=== PATIENT | female | born 1935 ===

== ENCOUNTER 2017-04-17 12:33 | Emergency (ER) | payer MEDICARE, OTHER ==
[2017-04-17 12:33] VITALS: BMI 34.2
[2017-04-17 12:57] VITALS: RESP 18; TEMP 97.5
[2017-04-17] MEDS ORDERED: Morphine 4 MG/ML VIAL ONE (14:23)
--- NOTE | 2017-04-17 16:05 | RAD ---
PROCEDURE: CHEST RADIOGRAPH, 1 VIEW HISTORY: s/p fall COMPARISON: None available. FINDINGS: LUNGS: The lungs are clear. PLEURA: No pneumothorax or pleural fluid seen. CARDIOVASCULAR: Normal. OSSEOUS STRUCTURES: There is an old fracture deformity in the right posterolateral 6th rib. VISUALIZED UPPER ABDOMEN: Normal. OTHER FINDINGS: None. IMPRESSION: No active pulmonary disease.
--- NOTE | 2017-04-17 16:56 | RAD ---
PROCEDURE: Radiographs of the Lumbar Spine. HISTORY: back pain s/p fall COMPARISON: No prior. FINDINGS: BONES: Normal alignment. No listhesis. No fracture. DISC SPACES: Unremarkable. OTHER FINDINGS: Calcified nonaneurysmal abdominal aorta. IMPRESSION: No acute findings related to/accounting for the clinical presentation. Additional benign and/or incidental findings described above. Please note: No preliminary report/ innterpretation of this examination provided by emergency department personnel.
--- NOTE | 2017-04-17 16:57 | RAD ---
PROCEDURE: Radiographs of the right humerus. HISTORY: Pain/swelling s/p fall 12 days ago COMPARISON: None. FINDINGS: BONES: Impacted and comminuted fracture proximal right humerus with avulsion of greater tuberosity. SOFT TISSUES: Soft tissue swelling at the site of the fracture identified. OTHER FINDINGS: None. IMPRESSION: Impacted, comminuted fracture the junction of an involving both right humeral neck and head.
--- NOTE | 2017-04-17 17:11 | C.PDOC ---
History Of Present Illness Pt fell 12 days ago and was evaluated [place] [facility] [place] hum[place] fracture was diagnosed and pt was placed in a sling. Pt was referred to orthopedic and given prescription for Percocet which pt did not fill. - HPI Time Seen by Provider: 04/17/17 13:31 Chief Complaint (Nursing): Trauma History Per: Patient, Family Injury Occurred (Timing): Days Ago: (12) Location Of Injury: Right: Arm Severity: Moderate Additional History Per: Prior Records Past Medical History Reviewed: Historical Data, Nursing Documentation, Vital Signs Vital Signs: Last Vital Signs Temp 97.5 F L 04/17/17 12:48 Pulse 84 04/17/17 12:48 Resp 18 04/17/17 12:48 BP 171/89 H 04/17/17 12:48 Pulse Ox 96 04/17/17 12:48 - Medical History PMH: Alzheimer's Disease, Dementia, Diabetes, HTN, Hypercholesterolemia, Osteoporosis Surgical History: Appendectomy, Cholecystectomy (4 years ago) Family History: States: Unknown Family Hx - Social History Hx Tobacco Use: No Hx Alcohol Use: No Hx Substance Use: No - Immunization History Hx Tetanus Toxoid Vaccination: No Hx Influenza Vaccination: No Hx Pneumococcal Vaccination: No Review Of Systems Except As Marked, All Systems Reviewed And Found Negative. Constitutional: Negative for: Fever Cardiovascular: Negative for: Chest Pain Respiratory: Negative for: Shortness of Breath Gastrointestinal: Negative for: Vomiting, Abdominal Pain Musculoskeletal: Positive for: Arm Pain (right), Back Pain. Negative for: Neck Pain, Leg Pain Neurological: Negative for: Weakness, Numbness, Seizures Physical Exam - Physical Exam Appears: Non-toxic, No Acute Distress Skin: Warm, Dry Head: Atraumatic, Normacephalic Eye(s): bilateral: PERRL, EOMI Neck: Normal ROM, No Midline Cervical Tenderness, No Step Off Deformity, Supple Chest: Symmetrical, No Deformity Cardiovascular: Rhythm Regular Respiratory: Normal Breath Sounds, No Accessory Muscle Use Gastrointestinal/Abdominal: Soft, No Tenderness Back: Paraspinal Tenderness Extremity: Tenderness (right upper arm), Capillary Refill (wnl), Swelling ( right upper arm) Extremity: Right: Limited ROM To Joint (Shoulder), Bilateral: Hips Non-Tender, Pelvis-Stable Pulses: Right Radial: Normal Neurological/Psych: Oriented x3, Normal Motor, Normal Sensation ED Course And Treatment O2 Sat by Pulse Oximetry: 96 Pulse Ox Interpretation: Normal - Radiology CXR: Viewed By Me, Read By Radiologist CXR Interpretation: Yes: No Acute Disease - Other Rad LS spine x-rays X-Ray: Viewed By Me, Read By Radiologist Interpretation: IMPRESSION: No acute findings related to/accounting for the clinical presentation. Additional benign and/or incidental findings described above. Right humerous x-rays X-Ray: Viewed By Me, Read By Radiologist Interpretation: IMPRESSION: Impacted, comminuted fracture the junction of an involving both right humeral neck and head. Disposition Counseled Patient/Family Regarding: Studies Performed, Diagnosis, Need For Followup - Disposition Disposition: HOME/ ROUTINE Disposition Time: 17:15 Condition: FAIR Additional Instructions: Fill and take the prescription for Percocet. Keep your right arm in the sling provided. Follow up with the orthopedic surgeon on April 24 as already scheduled. Return to the ER if you develop weakness, numbness, worsening of symptoms or if you have any other concerns. Instructions: Arm Fracture in Adults (ED) Forms: Topmission (Urdu) Print Language: MONTSERRATIAN - Clinical Impression Clinical Impression: Fracture of neck of right humerus
[2017-04-17 17:27] VITALS: BP 181/92; PULSE 76; O2SAT 97
== END 2017-04-17 17:43 | disposition home or self-care (01) ==
LOC: C.ER 12:33
DX: S42.291G Other displaced fracture of upper end of right humerus, subsequent encounter for fracture with delayed healing (principal); W18.30XD Fall on same level, unspecified, subsequent encounter
CPT/HCPCS: 71010; 72100; 73060; 96372; 99285; J2270

== ENCOUNTER 2017-06-06 10:29 | Inpatient (IN) | payer MEDICARE, OTHER ==
[2017-06-06 10:30] VITALS: BMI 34.2
--- NOTE | 2017-06-06 12:18 | C.PDOC ---
History Of Present Illness 81 y/o female with PMHx of DM, HTN, Arthritis and Dementia presents to ED status post falling from chair yesterday and today with complaints of right leg pain and swelling. As per daughter at bedside, patient falls secondary to weakness on right leg and reports patient is unable to bend right leg secondary to pain and swelling. Daughter states patient fell x1 month ago and had right arm fracture for which she is going to physical therapy for and states she gave patient Oxycodone yesterday after falling. Patient reports hitting head on floor today when falling and denies chest pain, sob, loc, nausea, vomiting, headache or any other complaints at this time. PMD is Dr Bates - [facility] Time Seen by Provider: 06/06/17 11:10 Chief Complaint (Nursing): Trauma History Per: Patient, Family History/Exam Limitations: no limitations Onset/Duration Of Symptoms: Days Past Medical History Reviewed: Historical Data, Nursing Documentation, Vital Signs Vital Signs: Last Vital Signs Temp 97.8 F 06/06/17 17:55 Pulse 93 H 06/06/17 17:55 Resp 20 06/06/17 17:55 BP 169/91 H 06/06/17 17:55 Pulse Ox 95 06/06/17 18:55 - Medical History PMH: Alzheimer's Disease, Dementia, Diabetes, HTN, Hypercholesterolemia, Osteoporosis Surgical History: Appendectomy, Cholecystectomy (4 years ago) Family History: States: No Known Family Hx - Social History Hx Tobacco Use: No Hx Alcohol Use: No Hx Substance Use: No - Immunization History Hx Tetanus Toxoid Vaccination: No Hx Influenza Vaccination: No Hx Pneumococcal Vaccination: No Review Of Systems Constitutional: Negative for: Fever, Chills Eyes: Negative for: Vision Change Gastrointestinal: Negative for: Nausea, Vomiting Genitourinary: Negative for: Dysuria, Hematuria Musculoskeletal: Positive for: Back Pain, Leg Pain Skin: Negative for: Rash Neurological: Positive for: Weakness. Negative for: Numbness, Headache, Dizziness Physical Exam - Physical Exam Additional Physical Exam Comments: Constitutional: No acute distress. WDWN. Head: Normocephalic. Atraumatic. Eyes: PERRL. EOMI. ENT: Moist mucous membranes. Neck: Supple. Cardiovascular: Regular rate and rhythm. Chest: No tenderness. Respiratory: Clear to auscultation bilaterally. GI: Soft. Nontender. Nondistended. Back: No CVA and no mid-line tenderness. Musculoskeletal: (+)swell to right lateral malleolus and to right knee (+) Tenderness to right lateral malleolus (+)Decreased ROM of right knee Secondary to pain (Old injury to right arm from previous fall x1 month ago) +2 DP pulse bilateral Skin: No rash. Neurologic: Alert, no focal deficit. Normal Motor ED Course And Treatment - Laboratory Results Result Diagrams: 06/06/17 12:30 06/06/17 12:30 O2 Sat by Pulse Oximetry: 95 (RA) Pulse Ox Interpretation: Normal - Other Rad Right humerus X-Ray: Viewed By Me, Read By Radiologist Interpretation: PROCEDURE: Radiographs of the right humerus. HISTORY: s/p fall. COMPARISON: 04/17/2017. FINDINGS: BONES: Previously referenced comminuted fracture humeral head greater tuberosity avulsion and impaction at the head neck interface is renoted. All callus formation over the lateral comminuted fracture fragments suggested. Eight 2 to 3 mm ossification projects just superior to the lateral humeral head on the current study not appreciate on the prior study either interval change or previously obscured. ; calcific tendinopathy calcific bursitis and/or tiny ossific avulsion chip fracture fragment are all considerations. SOFT TISSUES: As above. OTHER FINDINGS: Acromioclavicular joint space narrowing -senescent changes. IMPRESSION: Humeral head-neck fracture with impaction and interval callus formation. Interval demonstration calcific tendinopathy, calcific bursitis and/or tiny ossific avulsion chip fracture fragment -humeral head bordering. Right ankle X-Ray: Viewed By Me, Read By Radiologist Interpretation: PROCEDURE: Right Ankle Radiographs. HISTORY: twisted lateral malleolus miller. COMPARISON: None. FINDINGS: BONES: Talar dome intact. Generalized osteopenia. On the frontal to slightly oblique view, cortical interruption versus severe demineralization is suggested. Cortical fracture here possible. Overlying mottled radiolucency. Consider further evaluation with CT of the right ankle/hindfoot and/or MRI. Anterior tibial plafond fracture tibial talar joint extension suggested on lateral view. Talar body neck junction appears foreshortened on lateral view additional pathology here - possible. Wedged navicular bone with mild sclerosis - possibly chronic. Inferior calcaneal spur. 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 Ankle mortise maintained. Talar dome intact on frontal view. Talar dome flattened on lateral view. SOFT TISSUES: Marked soft tissue swelling especially over lateral ankle and hindfoot. Vascular calcifications. OTHER FINDINGS: None. IMPRESSION: Anterior tibial plafond fracture with tibiotalar joint extension. Additional areas of abnormal mostly talar morphology lateral aspect, posterior head and talar body neck junction . Ox soft tissue swelling. Additional fractures are of concern. Consider CT ankle for further localization and cortical assessments - CT Scan/US Head w/o contrast Other Rad Studies (CT/US): Read By Radiologist, Radiology Report Reviewed CT/US Interpretation: PROCEDURE: CT HEAD WITHOUT CONTRAST. HISTORY: R/O Bleed. COMPARISON: Noncontrast head CT from 05/30/2016. TECHNIQUE: Axial computed tomography images were obtained through the head/brain without intravenous contrast. Radiation dose: Total exam DLP = 828.87 mGy-cm. This CT exam was performed using one or more of the following dose reduction techniques: Automated exposure control, adjustment of the mA and/or kV according to patient size, and/or use of iterative reconstruction technique. FINDINGS: HEMORRHAGE: No intracranial hemorrhage. BRAIN: There is cystic encephalomalacia in the right paramedian posterior parietal, occipital and posterior medial temporal lobes with volume loss and ex vacuo dilatation of the atrium of the right lateral ventricle. There are severe chronic microangiopathic changes. There is no mass, mass effect or abnormal extra- axial fluid collection. VENTRICLES: There is moderate age-related global parenchymal volume loss and proportionate enlargement of the ventricles and cortical sulci. CALVARIUM: The skull base and calvarium are normal. PARANASAL SINUSES: Predominantly clear. MASTOID AIR CELLS: Predominantly clear. OTHER FINDINGS: None. IMPRESSION: No acute intracranial abnormality. 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 Severe chronic microangiopathic changes and moderate age -related global parenchymal volume loss. Right ankle CT Other Rad Studies (CT/US): Read By Radiologist, Radiology Report Reviewed CT/US Interpretation: CT right ankle. History: Injury. Comparison: None available. Technique: Multiple contiguous axial images were performed through the right ankle without the use of intravenous contrast. Subsequently, sagittal and coronal reformatted images were obtained. This CT exam was performed using one or more of the following dose reduction techniques: Automated exposure control, adjustment of the mA and/or kV according to patient size, and/or use of iterative reconstruction technique. Findings: Prominent lateral malleolar soft tissue swelling. Transverse oblique and comminuted fracture deformity through the distal fibula with questionable extension to the level of the syndesmosis. Focal patchy lucency/osteopenia measuring up to 1.6 centimeters within the medial malleolus of the distal tibia. Some adjacent mild cortical irregularity. This is best seen on series 2, image 44 and series 601, images 57-62. Subtle osseous injury at this level cannot entirely be excluded. Correlation with MRI would be helpful for further characterization. Some mild cortical irregularity at the anterior distal tibia near the tibiotalar joint space of uncertain clinical etiology. Correlation with MRI may be helpful to exclude osseous injury at this level. Narrowing at the tibiotalar joint space. Question small osteochondral abnormality seen at the lateral aspect of the talar dome. Diffuse osteopenia. Prominent vascular calcifications. Soft tissue calcifications within the vasculature. Plantar calcaneal spurring. Productive change at the base of the 5th metatarsal bone. Small to moderate ankle joint effusion. Hallux valgus deformity. Prominent vascular calcification at the level of the metatarsal bases. Clinical correlation. Impression: 1. Prominent lateral malleolar soft tissue swelling. Transverse oblique and comminuted fracture deformity through the distal fibula with questionable extension to the level of the syndesmosis. 2. Focal patchy lucency/osteopenia measuring up to 1.6 centimeters within the medial malleolus of the distal tibia. Some adjacent mild cortical irregularity. This is best seen on series 2, image 44 and series 601, images 57-62. Subtle osseous injury at this level cannot entirely be excluded. Correlation with MRI would be helpful for further characterization. 3. Some mild cortical irregularity at the anterior distal tibia near the tibiotalar joint space of uncertain clinical etiology. Correlation with MRI may be helpful to exclude osseous injury at this level. 4. Narrowing at the tibiotalar joint space. 5. Question small osteochondral abnormality seen at the lateral aspect of the talar dome. 6. Plantar calcaneal spurring. 7. Productive change at the base of the 5th metatarsal bone. 8. Small to moderate ankle joint effusion. 9. Hallux valgus deformity. 10. Prominent vascular calcification at the level of the metatarsal bases. Clinical correlation. Orthopedic Time Performed: 16:00 Time Out: Side verified Procedure: Splint Type: Long, Posterior Location: Right Consent obtained: Verbal Performed by: Mid-level Provider (done by cp, checked by me) Diagnosis: Fracture Type: Closed, Comminuted Location: Right Bone: Fibula Capillary refill: Normal Distal Sensation: Normal Distal Motor Function: Normal Capillary Refill: Normal Compartment: Normal Distal Sensation: Normal Distal Motor Function: Normal Medical Decision Making Medical Decision Making: Plan: CT scan w/o contrast, Blood work, UA, Right ankle Xray discussed with dr Chata Kerns, covering for Dr Lu Disposition Discussed With Dr.: Yaakov Kerns Doctor Will See Patient In The: Hospital - Disposition Disposition Time: 15:36 Condition: STABLE - Clinical Impression Clinical Impression: Comminuted fracture of shaft of fibula, Frequent falls, Unable to ambulate - PA / EVENT SALES MANAGER / Resident Statement MD/DO has reviewed & agrees with the documentation as recorded. - Scribe Statement The provider has reviewed the documentation as recorded by the Cruzibrickey Montoya All medical record entries made by the Jose M were at my direction and personally dictated by me. I have reviewed the chart and agree that the record accurately reflects my personal performance of the history, physical exam, medical decision making, and the department course for this patient. I have also personally directed, reviewed, and agree with the discharge instructions and disposition.
--- NOTE | 2017-06-06 12:29 | RAD ---
PROCEDURE: Right Ankle Radiographs. HISTORY: twisted lateral malleolus miller COMPARISON: None FINDINGS: BONES: Talar dome intact. Generalized osteopenia. On the frontal to slightly oblique view, cortical interruption versus severe demineralization is suggested. Cortical fracture here possible. Overlying mottled radiolucency. 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 Ankle mortise maintained. Talar dome intact on frontal view. Talar dome flattened on lateral view SOFT TISSUES: Marked soft tissue swelling especially over lateral ankle and hindfoot. Vascular calcifications OTHER FINDINGS: None. IMPRESSION: Anterior tibial plafond fracture with tibiotalar joint extension Additional areas of abnormal mostly talar morphology lateral aspect, posterior head and talar body neck junction . Ox soft tissue swelling. Additional fractures are of concern. Consider CT ankle for further localization and cortical assessments
[2017-06-06 12:34] LABS: BASO % 0.2 % (0.0-2.0); EOS # 0.1 K/uL (0.0-0.7); EOS % 0.6 % (0.0-4.0); HEMATOCRIT 38.9 % (34.0-47.0); LYMPH # 1.9 K/uL (1.0-4.3); MEAN CELL VOLUME 77.6 fL (81.0-99.0); MEAN CORPUSCULAR HEMOGLOBIN 25.8 pg (27.0-31.0); MEAN CORPUSCULAR HGB CONC 33.2 g/dL (33.0-37.0); MEAN PLATELET VOLUME 7.8 fL (7.2-11.7); MONO # 0.5 K/uL (0.0-0.8); MONO % 5.3 % (0.0-10.0); NRBC % 0.3 % (0.0-2.0); RED CELL DISTRIBUTION WIDTH 14.3 % (11.5-14.5); WHITE BLOOD COUNT 10.2 K/uL (4.8-10.8)
--- NOTE | 2017-06-06 12:41 | RAD ---
PROCEDURE: Radiographs of the right humerus. HISTORY: s/p fall COMPARISON: 04/17/2017 FINDINGS: BONES: Previously referenced comminuted fracture humeral head greater tuberosity avulsion and impaction at the head neck interface is renoted. All callus formation over the lateral comminuted fracture fragments suggested. Eight 2 to 3 mm ossification projects just superior to the lateral humeral head on the current study not appreciate on the prior study either interval change or previously obscured. ; calcific tendinopathy calcific bursitis and/or tiny ossific avulsion chip fracture fragment are all considerations. SOFT TISSUES: As above OTHER FINDINGS: Acromioclavicular joint space narrowing -senescent changes IMPRESSION: Humeral head-neck fracture with impaction and interval callus formation. Interval demonstration calcific tendinopathy, calcific bursitis and/or tiny ossific avulsion chip fracture fragment -humeral head bordering.
[2017-06-06 12:46] LABS: ALB/GLOB RATIO 1.3 (1.0-2.1); ALKALINE PHOSPHATASE 79 U/L (38-126); ALT/SGPT 34 U/L (9-52); AST/SGOT 24 U/L (14-36); BILIRUBIN,TOTAL 0.8 mg/dL (0.2-1.3); BLOOD UREA NITROGEN 18 mg/dL (7-17); CALCIUM 8.7 mg/dl (8.6-10.4); CARBON DIOXIDE 29 mmol/L (22-30); CHLORIDE 101 mmol/L (98-107); GFR AFRICAN-AMERICAN > 60; GLUCOSE,RANDOM 247 mg/dL (65-105); POTASSIUM 3.9 mmol/L (3.6-5.2); SODIUM 137 mmol/L (132-148); TOTAL PROTEIN 6.7 g/dL (6.3-8.3)
--- NOTE | 2017-06-06 13:31 | CT ---
PROCEDURE: CT HEAD WITHOUT CONTRAST. HISTORY: R/O Bleed COMPARISON: Noncontrast head CT from 05/30/2016. TECHNIQUE: Axial computed tomography images were obtained through the head/brain without intravenous contrast. Radiation dose: Total exam DLP = 828.87 mGy-cm. This CT exam was performed using one or more of the following dose reduction techniques: Automated exposure control, adjustment of the mA and/or kV according to patient size, and/or use of iterative reconstruction technique. FINDINGS: HEMORRHAGE: No intracranial hemorrhage. BRAIN: There is cystic encephalomalacia in the right paramedian posterior parietal, occipital and posterior medial temporal lobes with volume loss and ex vacuo dilatation of the atrium of the right lateral ventricle. There are severe chronic microangiopathic changes. There is no mass, mass effect or abnormal extra-axial fluid collection. VENTRICLES: There is moderate age-related global parenchymal volume loss and proportionate enlargement of the ventricles and cortical sulci. CALVARIUM: The skull base and calvarium are normal. PARANASAL SINUSES: Predominantly clear. MASTOID AIR CELLS: Predominantly clear. OTHER FINDINGS: None. IMPRESSION: No acute intracranial abnormality. Cystic encephalomalacia in the right paramedian posterior parietal lobe, occipital and posteromedial temporal lobe, sequela of remote right [employer] territory infarctions. Severe chronic microangiopathic changes and moderate age-related global parenchymal volume loss.
--- NOTE | 2017-06-06 14:54 | CT ---
CT right ankle History: Injury. Comparison: None available. Technique: Multiple contiguous axial images were performed through the right ankle without the use of intravenous contrast. Subsequently, sagittal and coronal reformatted images were obtained. This CT exam was performed using one or more of the following dose reduction techniques: Automated exposure control, adjustment of the mA and/or kV according to patient size, and/or use of iterative reconstruction technique. Findings: Prominent lateral malleolar soft tissue swelling. Transverse oblique and comminuted fracture deformity through the distal fibula with questionable extension to the level of the syndesmosis. Focal patchy lucency/osteopenia measuring up to 1.6 centimeters within the medial malleolus of the distal tibia. Some adjacent mild cortical irregularity. This is best seen on series 2, image 44 and series 601, images 57-62. Subtle osseous injury at this level cannot entirely be excluded. Correlation with MRI would be helpful for further characterization. Some mild cortical irregularity at the anterior distal tibia near the tibiotalar joint space of uncertain clinical etiology. Correlation with MRI may be helpful to exclude osseous injury at this level. Narrowing at the tibiotalar joint space. Question small osteochondral abnormality seen at the lateral aspect of the talar dome. Diffuse osteopenia. Prominent vascular calcifications. Soft tissue calcifications within the vasculature. Plantar calcaneal spurring. Productive change at the base of the 5th metatarsal bone. Small to moderate ankle joint effusion. Hallux valgus deformity. Prominent vascular calcification at the level of the metatarsal bases. Clinical correlation. Impression: 1. Prominent lateral malleolar soft tissue swelling. Transverse oblique and comminuted fracture deformity through the distal fibula with questionable extension to the level of the syndesmosis. 2. Focal patchy lucency/osteopenia measuring up to 1.6 centimeters within the medial malleolus of the distal tibia. Some adjacent mild cortical irregularity. This is best seen on series 2, image 44 and series 601, images 57-62. Subtle osseous injury at this level cannot entirely be excluded. Correlation with MRI would be helpful for further characterization. 3. Some mild cortical irregularity at the anterior distal tibia near the tibiotalar joint space of uncertain clinical etiology. Correlation with MRI may be helpful to exclude osseous injury at this level. 4. Narrowing at the tibiotalar joint space. 5. Question small osteochondral abnormality seen at the lateral aspect of the talar dome. 6. Plantar calcaneal spurring. 7. Productive change at the base of the 5th metatarsal bone. 8. Small to moderate ankle joint effusion. 9. Hallux valgus deformity. 10. Prominent vascular calcification at the level of the metatarsal bases. Clinical correlation.
--- NOTE | 2017-06-06 17:56 | CP.PCM.HP ---
Past Patient History - Past Medical History & Family History Past Medical History?: Yes - Past Social History Smoking Status: Never Smoked - CARDIAC Hx Hypercholesterolemia: Yes Hx Hypertension: Yes - PULMONARY Hx Respiratory Disorders: No - NEUROLOGICAL Hx Alzheimer's Disease: Yes Hx Dementia: Yes - HEENT Hx HEENT Problems: No - RENAL Hx Chronic Kidney Disease: No - ENDOCRINE/METABOLIC Hx Endocrine Disorders: Yes Hx Diabetes Mellitus Type 2: Yes - HEMATOLOGICAL/ONCOLOGICAL Hx Blood Disorders: No - INTEGUMENTARY Hx Dermatological Problems: No - MUSCULOSKELETAL/RHEUMATOLOGICAL Hx Osteoporosis: Yes - GASTROINTESTINAL Hx Gastrointestinal Disorders: No - GENITOURINARY/GYNECOLOGICAL Hx Genitourinary Disorders: No - PSYCHIATRIC Hx Substance Use: No - SURGICAL HISTORY Hx Appendectomy: Yes Hx Cholecystectomy: Yes (4 years ago) - ANESTHESIA Hx Anesthesia: Yes Hx Anesthesia Reactions: No Hx Malignant Hyperthermia: No Meds Allergies/Adverse Reactions: Allergies Allergy/AdvReac Type Severity Reaction Status Date / Time No Known Allergies Allergy Verified 04/17/17 13:24 Physical Exam - Constitutional Appears: Well - Head Exam Head Exam: ATRAUMATIC, NORMAL INSPECTION, NORMOCEPHALIC - Eye Exam Eye Exam: EOMI, Normal appearance, PERRL Pupil Exam: NORMAL ACCOMODATION, PERRL - ENT Exam ENT Exam: Mucous Membranes Moist, Normal Exam - Neck Exam Neck exam: Positive for: Normal Inspection - Respiratory Exam Respiratory Exam: Decreased Breath Sounds - Cardiovascular Exam Cardiovascular Exam: REGULAR RHYTHM, +S1, +S2 - GI/Abdominal Exam GI & Abdominal Exam: Diminished Bowel Sounds, Soft - Rectal Exam Rectal Exam: Deferred Results - Vital Signs Recent Vital Signs: Last Vital Signs Temp 97.8 F 06/06/17 17:55 Pulse 93 H 06/06/17 17:55 Resp 20 06/06/17 17:55 BP 169/91 H 06/06/17 17:55 Pulse Ox 95 06/06/17 17:55 - Labs Result Diagrams: 06/06/17 12:30 06/06/17 12:30 Labs: Laboratory Results - last 24 hr 06/06/17 06/06/17 12:30 12:30 WBC 10.2 D RBC 5.01 Hgb 12.9 Hct 38.9 MCV 77.6 L D MCH 25.8 L MCHC 33.2 RDW 14.3 Plt Count 317 D MPV 7.8 Neut % (Auto) 74.9 Lymph % (Auto) 19.0 L [place] % (Auto) 5.3 Eos % (Auto) 0.6 Baso % (Auto) 0.2 Neut # 7.6 H Lymph # 1.9 [place] # 0.5 Eos # 0.1 Baso # 0.0 Sodium 137 Potassium 3.9 Chloride 101 Carbon Dioxide 29 Anion Gap 12 BUN 18 H Creatinine 0.7 Est GFR ( Amer) > 60 Est GFR (Non-Af Amer) > 60 Random Glucose 247 H Calcium 8.7 Total Bilirubin 0.8 AST 24 ALT 34 Alkaline Phosphatase 79 Total Protein 6.7 Albumin 3.9 Globulin 2.9 Albumin/Globulin Ratio 1.3
[2017-06-06] MEDS ORDERED: (Novolin R) Insulin Human Regular 100 units/ml vial SC ONE (18:00)
[2017-06-06] MEDS ORDERED: (Novolin R) Insulin Human Regular 100 units/ml vial ONE (18:03)
[2017-06-07] MEDS: (Novolog) Insulin Aspart, Recombinant 100 u/ml 10 ml vial SC SCH ×2 (08:15→18:44)
[2017-06-07] MEDS ORDERED: Influenza Vaccine 60 mcg/0.5 mL SYR (4YR UP) IM ONE (10:00)
[2017-06-07] MEDS: Pantoprazole 40 mg EC Tab PO SCH (10:17)
[2017-06-07] MEDS: Enoxaparin 40 mg Syringe SC SCH (10:19)
--- NOTE | 2017-06-07 15:59 | CP.PCM.CON ---
History of Present Illness - History of Present Illness History of Present Illness: Ortho consultation Dr. Lopez 81F complains of right ankle pain after fall at home. She says she fell 6 weeks ago and fractured her right shoulder, but that is feeling much better and she is going to PT for her shoulder. She denies head injury, neck or back pain, pain in other extremities. Currently denies numbness/tingling/CP/SOB/dizziness. Review of Systems - Review of Systems All systems: reviewed and no additional remarkable complaints except - Constitutional Additional comments: no fever/chills - Cardiovascular Cardiovascular: As Per HPI - Respiratory Respiratory: As Per HPI - Gastrointestinal Additional comments: no n/v - Musculoskeletal Musculoskeletal: As Per HPI - Integumentary Integumentary: Swelling - Neurological Neurological: As Per HPI - Hematologic/Lymphatic Hematologic: absent: As Per HPI, Easy Bleeding, Easy Bruising, Lymphadenopathy, Other Past Patient History - Past Medical History & Family History Past Medical History?: Yes Past Family History: Reviewed and not pertinent - Past Social History Smoking Status: Never Smoked - CARDIAC Hx Cardiac Disorders: Yes Hx Hypercholesterolemia: Yes Hx Hypertension: Yes - PULMONARY Hx Respiratory Disorders: No - NEUROLOGICAL Hx Alzheimer's Disease: Yes Hx Dementia: Yes - HEENT Hx HEENT Problems: No - RENAL Hx Chronic Kidney Disease: No - ENDOCRINE/METABOLIC Hx Diabetes Mellitus Type 2: Yes - HEMATOLOGICAL/ONCOLOGICAL Hx Blood Disorders: No - INTEGUMENTARY Hx Dermatological Problems: No - MUSCULOSKELETAL/RHEUMATOLOGICAL Hx Falls: Yes Hx Osteoporosis: Yes - GASTROINTESTINAL Hx Gastrointestinal Disorders: No - GENITOURINARY/GYNECOLOGICAL Hx Genitourinary Disorders: No - PSYCHIATRIC Hx Substance Use: No - SURGICAL HISTORY Hx Appendectomy: Yes Hx Cholecystectomy: Yes (4 years ago) - ANESTHESIA Hx Anesthesia: Yes Hx Anesthesia Reactions: No Hx Malignant Hyperthermia: No Meds Allergies/Adverse Reactions: Allergies Allergy/AdvReac Type Severity Reaction Status Date / Time No Known Allergies Allergy Verified 04/17/17 13:24 - Medications Medications: Current Medications Enoxaparin Sodium (Lovenox) 40 mg SC DAILY [facility] Last Admin: 06/07/17 10:19 Dose: 40 mg Ibuprofen (Motrin Tab) 400 mg PO TID PRN PRN Reason: pain Insulin Aspart (Novolog) 15 unit SC BIDAC [facility] Last Admin: 06/07/17 08:15 Dose: 15 unit Insulin Glargine (Lantus) 30 unit SC [facility] Losartan Potassium (Cozaar) 50 mg PO DAILY [facility] Last Admin: 06/07/17 10:18 Dose: 50 mg Memantine (Namenda) 5 mg PO BID [facility] Last Admin: 06/07/17 10:18 Dose: 5 mg Pantoprazole Sodium (Protonix Ec Tab) 40 mg PO DAILY [facility] Last Admin: 06/07/17 10:17 Dose: 40 mg Sitagliptin Phosphate (Januvia) 50 mg PO DAILY [facility] Last Admin: 06/07/17 10:18 Dose: 50 mg Physical Exam - Constitutional Appears: Well, No Acute Distress - Head Exam Head Exam: ATRAUMATIC - Neck Exam Neck exam: Positive for: Full Rom, Normal Inspection - Respiratory Exam Respiratory Exam: NORMAL BREATHING PATTERN - Cardiovascular Exam Additional comments: +DP/PT pulses - Extremities Exam Additional comments: +ROM toes, sensation intact - Expanded Lower Extremities Exam Right Foot/Toe exam: swelling - Neurological Exam Neurological exam: Alert, Oriented x3 - Psychiatric Exam Psychiatric exam: Normal Affect, Normal Mood - Skin Skin Exam: Dry, Intact, Normal Color, Warm Results - Vital Signs Recent Vital Signs: Last Vital Signs Temp 98.3 F 06/07/17 08:09 Pulse 77 06/07/17 12:00 Resp 20 06/07/17 08:09 BP 176/71 H 06/07/17 08:09 Pulse Ox 98 06/07/17 08:09 - Labs Result Diagrams: 06/06/17 12:30 06/06/17 12:30 Labs: Laboratory Results - last 24 hr 06/06/17 06/06/17 06/06/17 17:51 21:02 21:16 POC Glucose (mg/dL) 317 H 167 H Total Creatine Kinase 28 L CK-MB (Mass) 0.22 Troponin I < 0.0120 06/07/17 06/07/17 06/07/17 05:12 06:25 11:12 POC Glucose (mg/dL) 180 H 200 H Total Creatine Kinase 22 L CK-MB (Mass) 0.27 Troponin I < 0.0120 Assessment & Plan (1) Fracture of ankle, lateral malleolus, right, closed Assessment and Plan: non operative posterior splint intact, insufficient replaced with well padded posterior and u splint, patient tolerated well, NVID pre and post splinting elevation NWB PT/OT VTE proph orthopedically stable pt to f/u in office, plan casting when swelling improved patient to f/u ortho for further treatment of right proximal humerus fx, non weight bearing to right shoulder at this time d/w Dr. Capps, agrees with above Status: Acute
[2017-06-07 17:16] LABS: BASO % 0.3 % (0.0-2.0); EOS # 0.1 K/uL (0.0-0.7); EOS % 1.4 % (0.0-4.0); HEMATOCRIT 35.6 % (34.0-47.0); LYMPH # 2.3 K/uL (1.0-4.3); MEAN CELL VOLUME 77.6 fL (81.0-99.0); MEAN CORPUSCULAR HEMOGLOBIN 25.8 pg (27.0-31.0); MEAN CORPUSCULAR HGB CONC 33.3 g/dL (33.0-37.0); MEAN PLATELET VOLUME 8.1 fL (7.2-11.7); MONO # 0.6 K/uL (0.0-0.8); MONO % 6.4 % (0.0-10.0); RED CELL DISTRIBUTION WIDTH 14.2 % (11.5-14.5); WHITE BLOOD COUNT 8.8 K/uL (4.8-10.8)
[2017-06-07 17:28] LABS: ALB/GLOB RATIO 1.3 (1.0-2.1); ALKALINE PHOSPHATASE 70 U/L (38-126); ALT/SGPT 39 U/L (9-52); AST/SGOT 21 U/L (14-36); BILIRUBIN,TOTAL 0.6 mg/dL (0.2-1.3); BLOOD UREA NITROGEN 13 mg/dL (7-17); CALCIUM 8.8 mg/dl (8.6-10.4); CARBON DIOXIDE 31 mmol/L (22-30); CHLORIDE 100 mmol/L (98-107); GFR AFRICAN-AMERICAN > 60; GLUCOSE,RANDOM 199 mg/dL (65-105); POTASSIUM 3.9 mmol/L (3.6-5.2); SODIUM 138 mmol/L (132-148); TOTAL PROTEIN 6.4 g/dL (6.3-8.3)
--- NOTE | 2017-06-07 19:42 | CP.PCM.PN ---
Subjective - Date & Time of Evaluation Date of Evaluation: 06/07/17 Time of Evaluation: 12:40 - Subjective Subjective: clinically same Objective - Vital Signs/Intake and Output Vital Signs (last 24 hours): Temp Pulse Resp BP Pulse Ox 98.1 F 71 20 156/77 H 100 06/07/17 17:00 06/07/17 17:00 06/07/17 17:00 06/07/17 17:00 06/07/17 17:00 - Medications Medications: Current Medications Enoxaparin Sodium (Lovenox) 40 mg SC DAILY [facility] Last Admin: 06/07/17 10:19 Dose: 40 mg Gabapentin (Neurontin) 300 mg PO HS [facility] Ibuprofen (Motrin Tab) 400 mg PO TID PRN PRN Reason: pain Insulin Aspart (Novolog) 15 unit SC BIDAC [facility] Last Admin: 06/07/17 18:44 Dose: 15 unit Insulin Glargine (Lantus) 30 unit SC HS [facility] Losartan Potassium (Cozaar) 50 mg PO DAILY [facility] Last Admin: 06/07/17 10:18 Dose: 50 mg Memantine (Namenda) 5 mg PO BID [facility] Last Admin: 06/07/17 18:41 Dose: 5 mg Pantoprazole Sodium (Protonix Ec Tab) 40 mg PO DAILY [facility] Last Admin: 06/07/17 10:17 Dose: 40 mg Sitagliptin Phosphate (Januvia) 50 mg PO DAILY [facility] Last Admin: 06/07/17 10:18 Dose: 50 mg - Labs Labs: 06/07/17 17:07 06/07/17 17:07 - Constitutional Appears: Well - Head Exam Head Exam: ATRAUMATIC, NORMAL INSPECTION, NORMOCEPHALIC - Eye Exam Eye Exam: EOMI, Normal appearance, PERRL Pupil Exam: NORMAL ACCOMODATION, PERRL - ENT Exam ENT Exam: Mucous Membranes Moist, Normal Exam - Neck Exam Neck Exam: Full ROM, Normal Inspection. absent: Lymphadenopathy - Respiratory Exam Respiratory Exam: Decreased Breath Sounds - Cardiovascular Exam Cardiovascular Exam: REGULAR RHYTHM, +S1, +S2 - GI/Abdominal Exam GI & Abdominal Exam: Soft, Diminished Bowel Sounds - Rectal Exam Rectal Exam: Deferred
[2017-06-07 21:09] LABS: RBC URINE 1 /hpf (0-3); URINE BACTERIA MANY (<OCC); URINE BILIRUBIN NEGATIVE (NEGATIVE); URINE BLOOD NEGATIVE (NEGATIVE); URINE COLOR Yellow (YELLOW); URINE GLUCOSE (UA) NORMAL (Normal); URINE KETONE NEGATIVE (NEGATIVE); URINE LEUKOCYTE ESTERASE 1+ Leu/uL (Negative); URINE PROTEIN NEGATIVE (NEGATIVE); URINE UROBILINOGEN NORMAL mg/dL (0.2-1.0); WBC URINE 13 /hpf (0-5)
[2017-06-07] MEDS: (Lantus) Insulin Glargine, Recombinant SC SCH (21:27)
--- NOTE | 2017-06-08 00:15 | CP.PCM.CON ---
History of Present Illness - History of Present Illness History of Present Illness: 81 F admitted for multiple falls Check ECHO and Carotids Past Patient History - Past Medical History & Family History Past Medical History?: Yes Past Family History: Reviewed and not pertinent - Past Social History Smoking Status: Never Smoked - CARDIAC Hx Cardiac Disorders: Yes Hx Hypercholesterolemia: Yes Hx Hypertension: Yes - PULMONARY Hx Respiratory Disorders: No - NEUROLOGICAL Hx Alzheimer's Disease: Yes Hx Dementia: Yes - HEENT Hx HEENT Problems: No - RENAL Hx Chronic Kidney Disease: No - ENDOCRINE/METABOLIC Hx Diabetes Mellitus Type 2: Yes - HEMATOLOGICAL/ONCOLOGICAL Hx Blood Disorders: No - INTEGUMENTARY Hx Dermatological Problems: No - MUSCULOSKELETAL/RHEUMATOLOGICAL Hx Falls: Yes Hx Osteoporosis: Yes - GASTROINTESTINAL Hx Gastrointestinal Disorders: No - GENITOURINARY/GYNECOLOGICAL Hx Genitourinary Disorders: No - PSYCHIATRIC Hx Substance Use: No - SURGICAL HISTORY Hx Appendectomy: Yes Hx Cholecystectomy: Yes (4 years ago) - ANESTHESIA Hx Anesthesia: Yes Hx Anesthesia Reactions: No Hx Malignant Hyperthermia: No Meds Allergies/Adverse Reactions: Allergies Allergy/AdvReac Type Severity Reaction Status Date / Time No Known Allergies Allergy Verified 04/17/17 13:24 - Medications Medications: Current Medications Enoxaparin Sodium (Lovenox) 40 mg SC DAILY [facility] Last Admin: 06/07/17 10:19 Dose: 40 mg Gabapentin (Neurontin) 300 mg PO HS [facility] Last Admin: 06/07/17 21:31 Dose: 300 mg Ibuprofen (Motrin Tab) 400 mg PO TID PRN PRN Reason: pain Insulin Aspart (Novolog) 15 unit SC BIDAC [facility] Last Admin: 06/07/17 18:44 Dose: 15 unit Insulin Glargine (Lantus) 30 unit SC HS [facility] Last Admin: 06/07/17 21:27 Dose: Not Given Losartan Potassium (Cozaar) 50 mg PO DAILY [facility] Last Admin: 06/07/17 10:18 Dose: 50 mg Memantine (Namenda) 5 mg PO BID [facility] Last Admin: 06/07/17 18:41 Dose: 5 mg Pantoprazole Sodium (Protonix Ec Tab) 40 mg PO DAILY [facility] Last Admin: 06/07/17 10:17 Dose: 40 mg Sitagliptin Phosphate (Januvia) 50 mg PO DAILY [facility] Last Admin: 06/07/17 10:18 Dose: 50 mg Results - Vital Signs Recent Vital Signs: Last Vital Signs Temp 98.1 F 06/07/17 17:00 Pulse 71 06/07/17 17:00 Resp 20 06/07/17 17:00 BP 156/77 H 06/07/17 17:00 Pulse Ox 100 06/07/17 17:00 - Labs Result Diagrams: 06/07/17 17:07 06/07/17 17:07 Labs: Laboratory Results - last 24 hr 06/06/17 06/07/17 06/07/17 20:41 05:12 06:25 WBC RBC Hgb Hct MCV MCH MCHC RDW Plt Count MPV Neut % (Auto) Lymph % (Auto) [place] % (Auto) Eos % (Auto) Baso % (Auto) Neut # Lymph # [place] # Eos # Baso # Sodium Potassium Chloride Carbon Dioxide Anion Gap BUN Creatinine Est GFR ( Amer) Est GFR (Non-Af Amer) POC Glucose (mg/dL) 180 H Random Glucose Calcium Total Bilirubin AST ALT Alkaline Phosphatase Total Creatine Kinase 22 L CK-MB (Mass) 0.27 Troponin I < 0.0120 Total Protein Albumin Globulin Albumin/Globulin Ratio Urine Color Yellow Urine Clarity Clear Urine pH 6.0 Ur Specific [place] 1.005 Urine Protein Negative Urine Glucose (UA) Normal Urine Ketones Negative Urine Blood Negative Urine Nitrate Negative Urine Bilirubin Negative Urine Urobilinogen Normal Ur Leukocyte Esterase 1+ H Urine WBC (Auto) 13 H Urine RBC (Auto) 1 Ur Squamous Epith Cells 9 H Urine Bacteria Many H 06/07/17 06/07/17 06/07/17 11:12 16:36 17:07 WBC 8.8 RBC 4.59 Hgb 11.9 Hct 35.6 MCV 77.6 L MCH 25.8 L MCHC 33.3 RDW 14.2 Plt Count 331 MPV 8.1 Neut % (Auto) 65.9 Lymph % (Auto) 26.0 [place] % (Auto) 6.4 Eos % (Auto) 1.4 Baso % (Auto) 0.3 Neut # 5.8 Lymph # 2.3 [place] # 0.6 Eos # 0.1 Baso # 0.0 Sodium Potassium Chloride Carbon Dioxide Anion Gap BUN Creatinine Est GFR ( Amer) Est GFR (Non-Af Amer) POC Glucose (mg/dL) 200 H 219 H Random Glucose Calcium Total Bilirubin AST ALT Alkaline Phosphatase Total Creatine Kinase CK-MB (Mass) Troponin I Total Protein Albumin Globulin Albumin/Globulin Ratio Urine Color Urine Clarity Urine pH Ur Specific [place] Urine Protein Urine Glucose (UA) Urine Ketones Urine Blood Urine Nitrate Urine Bilirubin Urine Urobilinogen Ur Leukocyte Esterase Urine WBC (Auto) Urine RBC (Auto) Ur Squamous Epith Cells Urine Bacteria 06/07/17 06/07/17 06/07/17 17:07 17:07 21:24 WBC RBC Hgb Hct MCV MCH MCHC RDW Plt Count MPV Neut % (Auto) Lymph % (Auto) [place] % (Auto) Eos % (Auto) Baso % (Auto) Neut # Lymph # [place] # Eos # Baso # Sodium 138 Potassium 3.9 Chloride 100 Carbon Dioxide 31 H Anion Gap 11 BUN 13 Creatinine 0.8 Est GFR ( Amer) > 60 Est GFR (Non-Af Amer) > 60 POC Glucose (mg/dL) 101 Random Glucose 199 H Calcium 8.8 Total Bilirubin 0.6 AST 21 ALT 39 Alkaline Phosphatase 70 Total Creatine Kinase 22 L CK-MB (Mass) 0.29 Troponin I < 0.0120 Total Protein 6.4 Albumin 3.6 Globulin 2.8 Albumin/Globulin Ratio 1.3 Urine Color Urine Clarity Urine pH Ur Specific [place] Urine Protein Urine Glucose (UA) Urine Ketones Urine Blood Urine Nitrate Urine Bilirubin Urine Urobilinogen Ur Leukocyte Esterase Urine WBC (Auto) Urine RBC (Auto) Ur Squamous Epith Cells Urine Bacteria
[2017-06-08] MEDS: (Novolog) Insulin Aspart, Recombinant 100 u/ml 10 ml vial SC SCH ×2 (08:59→18:10)
[2017-06-08] MEDS: Enoxaparin 40 mg Syringe SC SCH (08:59)
[2017-06-08] MEDS: Pantoprazole 40 mg EC Tab PO SCH (08:59)
[2017-06-08] MEDS ORDERED: Pneumococcal 23-Valent Vaccine IM ONE (10:00)
--- NOTE | 2017-06-08 18:39 | CP.PCM.PN ---
Subjective - Date & Time of Evaluation Date of Evaluation: 06/08/17 Time of Evaluation: 13:40 - Subjective Subjective: clinically same Objective - Vital Signs/Intake and Output Vital Signs (last 24 hours): Temp Pulse Resp BP Pulse Ox 98.0 F 78 18 138/78 96 06/08/17 16:47 06/08/17 16:47 06/08/17 16:47 06/08/17 16:47 06/08/17 16:47 Intake and Output: 06/08/17 06/08/17 06:59 18:59 Intake Total 0 Output Total 0 Balance 0 - Medications Medications: Current Medications Donepezil HCl (Aricept) 5 mg PO [facility] Enoxaparin Sodium (Lovenox) 40 mg SC DAILY [facility] Last Admin: 06/08/17 08:59 Dose: 40 mg Gabapentin (Neurontin) 300 mg PO HS [facility] Last Admin: 06/07/17 21:31 Dose: 300 mg Ibuprofen (Motrin Tab) 400 mg PO TID PRN PRN Reason: pain Insulin Aspart (Novolog) 15 unit SC BIDAC [facility] Last Admin: 06/08/17 18:10 Dose: 15 unit Insulin Glargine (Lantus) 30 unit SC [facility] Last Admin: 06/07/17 21:27 Dose: Not Given Losartan Potassium (Cozaar) 50 mg PO DAILY [facility] Last Admin: 06/08/17 08:59 Dose: 50 mg Memantine (Namenda) 5 mg PO BID [facility] Last Admin: 06/08/17 18:10 Dose: 5 mg Pantoprazole Sodium (Protonix Ec Tab) 40 mg PO DAILY [facility] Last Admin: 06/08/17 08:59 Dose: 40 mg Sitagliptin Phosphate (Januvia) 50 mg PO DAILY [facility] Last Admin: 06/08/17 08:59 Dose: 50 mg - Labs Labs: 06/07/17 17:07 06/07/17 17:07 - Constitutional Appears: Well - Head Exam Head Exam: ATRAUMATIC, NORMAL INSPECTION, NORMOCEPHALIC - Eye Exam Eye Exam: EOMI, Normal appearance, PERRL Pupil Exam: NORMAL ACCOMODATION, PERRL - ENT Exam ENT Exam: Mucous Membranes Moist, Normal Exam - Neck Exam Neck Exam: Full ROM, Normal Inspection. absent: Lymphadenopathy - Respiratory Exam Respiratory Exam: Decreased Breath Sounds - Cardiovascular Exam Cardiovascular Exam: REGULAR RHYTHM, +S1, +S2 - GI/Abdominal Exam GI & Abdominal Exam: Soft, Diminished Bowel Sounds - Rectal Exam Rectal Exam: Deferred
[2017-06-08] MEDS: (Lantus) Insulin Glargine, Recombinant SC SCH (21:36)
--- NOTE | 2017-06-09 00:10 | CON ---
DATE: HISTORY OF PRESENT ILLNESS: This is an 81-year-old female with a past medical history of diabetes, hypertension, arthritis, dementia, came to the hospital following fall from the chair yesterday and broke right fibula. CAT scan of the head was done, which was reported negative. The patient's daughter states that as per note that she fell a month ago and had right arm fracture and no loss of consciousness, no nausea, no vomiting. PAST MEDICAL HISTORY: Diabetes, hypertension, dementia, fracture, and also osteoporosis. REVIEW OF SYSTEMS: Negative except fracture of the right fibula. PHYSICAL EXAMINATION VITAL SIGNS: Blood pressure 169/91. HEENT: Normocephalic, atraumatic. NECK: Supple. NEUROLOGIC: Awake, alert, oriented to self and place, not to time. Cranial nerves II through XII are tested. Pupils reactive. No facial asymmetry. Tongue midline. Motor examination, spontaneous movement of the extremities noted. Deep tendon reflexes 1+. Both plantars downgoing. Sensory appears intact. Cerebellar and gait deferred. LABORATORY DATA: WBC 10.2, hemoglobin 12.9, hematocrit 38.9, platelets 317. Sodium 137, potassium 3.9, chloride 101, CO2 of 29, glucose 247, BUN 16, creatinine 0.7. IMPRESSION: Fall and fracture of the right fibula and multiple medical problems like dementia, hypertension and diabetes, possibly peripheral neuropathy secondary to diabetes. Workup in progress and continue present management. We will follow Physical Therapy. Perez Nicole MD
--- NOTE | 2017-06-09 00:51 | CARD ---
APPROVED REPORT EXAM: Two-dimensional and M-mode echocardiogram with Doppler and color Doppler. Other Information Quality : TDSRhythm : INDICATION CVA/TIA RISK FACTORS Hypertension Hyperlipidemia Diabetes 2D DIMENSIONS IVSd1.1 (0.7-1.1cm)LVDd3.6 (3.9-5.9cm) PWd1.0 (0.7-1.1cm)LVDs2.4 (2.5-4.0cm) FS (%) 32.6 %LVEF (%)61.9 (>50%) M-Mode DIMENSIONS Left Atrium (MM)3.77 (2.5-4.0cm)Aortic Root2.80 (2.2-3.7cm) Mitral Valve MV E Sqdheqxs96.8cm/sMV A Ylmdddsr395.0cm/sE/A ratio0.4 TDI E/Lateral E'0.0E/Medial E'0.0 Tricuspid Valve TR Peak Webagssn112rc/sTR Peak [id number] LEFT VENTRICLE The left ventricle is normal size. There is mild concentric left ventricular hypertrophy. The left ventricular function is normal. The left ventricular ejection fraction is within the normal range. There is normal LV segmental wall motion. Transmitral Doppler flow pattern is Grade I-abnormal relaxation pattern. AORTIC VALVE The aortic valve is tri-cuspid. The aortic valve is mildly sclerotic. No aortic regurgitation is present. There is no aortic valvular stenosis. There is no aortic valvular vegetation. MITRAL VALVE Mitral annular calcification is mild. There is no evidence of mitral valve prolapse. There is no mitral valve stenosis. Mitral regurgitation is trace. TRICUSPID VALVE The tricuspid valve is normal in structure. There is trace to mild tricuspid regurgitation. There is no tricuspid valve prolapse or vegetation. There is no tricuspid valve stenosis. PULMONIC VALVE The pulmonary valve is normal in structure. There is no pulmonic valvular regurgitation. There is no pulmonic valvular stenosis. GREAT VESSELS The aortic root is normal in size. The ascending aorta is normal in size. The IVC is normal in size and collapses >50% with inspiration. <Conclusion> The left ventricular ejection fraction is within the normal range. There is mild concentric left ventricular hypertrophy. Transmitral Doppler flow pattern is Grade I-abnormal relaxation pattern. The aortic valve is tri-cuspid. The aortic valve is mildly sclerotic. Mitral annular calcification is mild. Mitral regurgitation is trace.
[2017-06-09] MEDS: Pantoprazole 40 mg EC Tab PO SCH (10:23)
[2017-06-09] MEDS: Enoxaparin 40 mg Syringe SC SCH (10:23)
--- NOTE | 2017-06-09 12:20 | CARD ---
APPROVED REPORT EKG Measurement Heart [id number] ME [id number] <Conclusion> Normal sinus rhythm Inferior infarct, age undetermined Abnormal ECG
[2017-06-09] MEDS: (Novolog) Insulin Aspart, Recombinant 100 u/ml 10 ml vial SC SCH (17:54)
--- NOTE | 2017-06-09 19:31 | CP.PCM.PN ---
Subjective - Date & Time of Evaluation Date of Evaluation: 06/09/17 Time of Evaluation: 11:00 - Subjective Subjective: clinically same Objective - Vital Signs/Intake and Output Vital Signs (last 24 hours): Temp Pulse Resp BP Pulse Ox 98.1 F 70 20 131/75 98 06/09/17 16:00 06/09/17 16:00 06/09/17 16:00 06/09/17 16:00 06/09/17 16:00 - Medications Medications: Current Medications Donepezil HCl (Aricept) 5 mg PO HS [facility] Last Admin: 06/08/17 21:38 Dose: 5 mg Enoxaparin Sodium (Lovenox) 40 mg SC DAILY [facility] Last Admin: 06/09/17 10:23 Dose: 40 mg Gabapentin (Neurontin) 300 mg PO HS [facility] Last Admin: 06/08/17 21:38 Dose: 300 mg Ibuprofen (Motrin Tab) 400 mg PO TID PRN PRN Reason: pain Last Admin: 06/09/17 13:25 Dose: 400 mg Insulin Aspart (Novolog) 15 unit SC BIDAC [facility] Last Admin: 06/09/17 17:54 Dose: 15 unit Insulin Glargine (Lantus) [address] [facility] Losartan Potassium (Cozaar) 50 mg PO DAILY [facility] Last Admin: 06/09/17 10:23 Dose: 50 mg Memantine (Namenda) 5 mg PO BID [facility] Last Admin: 06/09/17 17:54 Dose: 5 mg Pantoprazole Sodium (Protonix Ec Tab) 40 mg PO DAILY [facility] Last Admin: 06/09/17 10:23 Dose: 40 mg Sitagliptin Phosphate (Januvia) 50 mg PO DAILY [facility] Last Admin: 06/08/17 08:59 Dose: 50 mg - Labs Labs: 06/07/17 17:07 06/07/17 17:07 - Constitutional Appears: Well - Head Exam Head Exam: ATRAUMATIC, NORMAL INSPECTION, NORMOCEPHALIC - Eye Exam Eye Exam: EOMI, Normal appearance, PERRL Pupil Exam: NORMAL ACCOMODATION, PERRL - ENT Exam ENT Exam: Mucous Membranes Moist, Normal Exam - Neck Exam Neck Exam: Full ROM, Normal Inspection. absent: Lymphadenopathy - Respiratory Exam Respiratory Exam: Decreased Breath Sounds - Cardiovascular Exam Cardiovascular Exam: REGULAR RHYTHM, +S1, +S2 - GI/Abdominal Exam GI & Abdominal Exam: Soft, Diminished Bowel Sounds - Rectal Exam Rectal Exam: Deferred
--- NOTE | 2017-06-09 20:14 | CP.PCM.PN ---
Subjective - Date & Time of Evaluation Date of Evaluation: 06/09/17 Time of Evaluation: 12:10 - Subjective Subjective: Patient seen and evaluated ECHO Normal LV function Not in distress Medical management Objective - Vital Signs/Intake and Output Vital Signs (last 24 hours): Temp Pulse Resp BP Pulse Ox 98.1 F 70 20 131/75 98 06/09/17 16:00 06/09/17 16:00 06/09/17 16:00 06/09/17 16:00 06/09/17 16:00 - Medications Medications: Current Medications Donepezil HCl (Aricept) 5 mg PO HS [facility] Last Admin: 06/08/17 21:38 Dose: 5 mg Enoxaparin Sodium (Lovenox) 40 mg SC DAILY [facility] Last Admin: 06/09/17 10:23 Dose: 40 mg Gabapentin (Neurontin) 300 mg PO HS [facility] Last Admin: 06/08/17 21:38 Dose: 300 mg Ibuprofen (Motrin Tab) 400 mg PO TID PRN PRN Reason: pain Last Admin: 06/09/17 13:25 Dose: 400 mg Insulin Aspart (Novolog) 15 unit SC BIDAC [facility] Last Admin: 06/09/17 17:54 Dose: 15 unit Insulin Glargine (Lantus) 30 unit SC HS [facility] Losartan Potassium (Cozaar) 50 mg PO DAILY [facility] Last Admin: 06/09/17 10:23 Dose: 50 mg Memantine (Namenda) 5 mg PO BID [facility] Last Admin: 06/09/17 17:54 Dose: 5 mg Pantoprazole Sodium (Protonix Ec Tab) 40 mg PO DAILY [facility] Last Admin: 06/09/17 10:23 Dose: 40 mg Sitagliptin Phosphate (Januvia) 50 mg PO DAILY [facility] Last Admin: 06/08/17 08:59 Dose: 50 mg - Labs Labs: 06/07/17 17:07 06/07/17 17:07
[2017-06-09] MEDS: (Lantus) Insulin Glargine, Recombinant SC SCH (21:53)
[2017-06-10] MEDS: (Novolog) Insulin Aspart, Recombinant 100 u/ml 10 ml vial SC SCH ×4 (09:06→21:42)
[2017-06-10] MEDS ORDERED: Influenza Vaccine 60 mcg/0.5 mL SYR (4YR UP) IM ONE ×2 (10:00→13:00)
[2017-06-10] MEDS: Enoxaparin 40 mg Syringe SC SCH (10:11)
[2017-06-10] MEDS: Pantoprazole 40 mg EC Tab PO SCH (10:12)
--- NOTE | 2017-06-10 15:53 | CP.PCM.PN ---
Subjective - Date & Time of Evaluation Date of Evaluation: 06/10/17 Time of Evaluation: 11:00 - Subjective Subjective: clinically same Objective - Vital Signs/Intake and Output Vital Signs (last 24 hours): Temp Pulse Resp BP Pulse Ox 97.8 F 70 20 147/76 97 06/10/17 09:08 06/10/17 09:08 06/10/17 09:08 06/10/17 09:08 06/10/17 09:08 Intake and Output: 06/10/17 06/10/17 06:59 18:59 Intake Total 100 Balance 100 - Medications Medications: Current Medications Donepezil HCl (Aricept) 5 mg PO HS [facility] Last Admin: 06/09/17 21:54 Dose: 5 mg Enoxaparin Sodium (Lovenox) 40 mg SC DAILY [facility] Last Admin: 06/10/17 10:11 Dose: 40 mg Gabapentin (Neurontin) 300 mg PO HS [facility] Last Admin: 06/09/17 21:54 Dose: 300 mg Ibuprofen (Motrin Tab) 400 mg PO TID PRN PRN Reason: pain Last Admin: 06/09/17 13:25 Dose: 400 mg Insulin Aspart (Novolog) 0 unit SC [facility] PRN Reason: Protocol Last Admin: 06/10/17 12:33 Dose: 4 unit Insulin Glargine (Lantus) 30 unit SC [facility] Last Admin: 06/09/17 21:53 Dose: Not Given Losartan Potassium (Cozaar) 50 mg PO DAILY [facility] Last Admin: 06/10/17 10:12 Dose: 50 mg Memantine (Namenda) 5 mg PO BID [facility] Last Admin: 06/10/17 10:12 Dose: 5 mg Pantoprazole Sodium (Protonix Ec Tab) 40 mg PO DAILY [facility] Last Admin: 06/10/17 10:12 Dose: 40 mg Sitagliptin Phosphate (Januvia) 50 mg PO DAILY [facility] Last Admin: 06/08/17 08:59 Dose: 50 mg - Labs Labs: 06/07/17 17:07 06/07/17 17:07 - Constitutional Appears: Well - Head Exam Head Exam: ATRAUMATIC, NORMAL INSPECTION, NORMOCEPHALIC - Eye Exam Eye Exam: EOMI, Normal appearance, PERRL Pupil Exam: NORMAL ACCOMODATION, PERRL - ENT Exam ENT Exam: Mucous Membranes Moist, Normal Exam - Neck Exam Neck Exam: Full ROM, Normal Inspection. absent: Lymphadenopathy - Respiratory Exam Respiratory Exam: Decreased Breath Sounds - Cardiovascular Exam Cardiovascular Exam: REGULAR RHYTHM, +S1, +S2 - GI/Abdominal Exam GI & Abdominal Exam: Soft, Diminished Bowel Sounds - Rectal Exam Rectal Exam: Deferred
[2017-06-10] MEDS: (Lantus) Insulin Glargine, Recombinant SC SCH (21:43)
[2017-06-11] MEDS: (Novolog) Insulin Aspart, Recombinant 100 u/ml 10 ml vial SC SCH ×4 (07:41→23:00)
[2017-06-11 07:49] LABS: BASO % 0.2 % (0.0-2.0); EOS # 0.3 K/uL (0.0-0.7); EOS % 3.7 % (0.0-4.0); HEMATOCRIT 33.7 % (34.0-47.0); LYMPH # 1.8 K/uL (1.0-4.3); LYMPH % 24.1 % (20.0-40.0); MEAN CELL VOLUME 77.3 fL (81.0-99.0); MEAN CORPUSCULAR HEMOGLOBIN 26.3 pg (27.0-31.0); MEAN CORPUSCULAR HGB CONC 34.1 g/dL (33.0-37.0); MEAN PLATELET VOLUME 7.6 fL (7.2-11.7); MONO # 0.5 K/uL (0.0-0.8); MONO % 6.7 % (0.0-10.0); NRBC % 0.1 % (0.0-2.0); RED CELL DISTRIBUTION WIDTH 14.6 % (11.5-14.5); WHITE BLOOD COUNT 7.3 K/uL (4.8-10.8)
[2017-06-11 08:07] LABS: BLOOD UREA NITROGEN 15 mg/dL (7-17); CALCIUM 8.7 mg/dl (8.6-10.4); CARBON DIOXIDE 32 mmol/L (22-30); CHLORIDE 105 mmol/L (98-107); GFR AFRICAN-AMERICAN > 60; GLUCOSE,RANDOM 130 mg/dL (65-105); POTASSIUM 3.9 mmol/L (3.6-5.2); SODIUM 141 mmol/L (132-148)
[2017-06-11] MEDS: Enoxaparin 40 mg Syringe SC SCH (10:59)
[2017-06-11] MEDS: Pantoprazole 40 mg EC Tab PO SCH (10:59)
--- NOTE | 2017-06-11 14:18 | CP.PCM.CON ---
History of Present Illness - History of Present Illness History of Present Illness: 81-year-old female, [id number], with PMH = diabetes, hypertension, early dementia, osteoporosis, history of multiple falls presented to the emergency room at [facility] on 06/06/17 with R ankle pain since falling at home earlier that day. Patient also states that she had another fall 6 weeks ago resulting in a right shoulder fracture. She was instructed to follow-up with an orthopedic surgeon as an outpatient but she has not been compliant. She states that her R shoulder pain is improving but she feels stiff. R ankle: She states that on 06/06/17 she fell from a chair at home landing on her R ankle resulting in immediate 10/10 pain and swelling localized to the R ankle. She was unable to tolerate any weightbearing to the R lower extremity. she was brought to the ER at [facility] by her family, after evaluation by ER staff and review of imaging she was diagnosed with a minimally displaced lateral malleolus fracture at the level of the syndesmosis. patient denied having pain on medial ankle. She was admitted to the medical service under Dr. Tacho Kerns for a medical workup due to the history of repetitive falls and multiple ER admissions over the past few months. She also has a concurrent R shoulder injury and without difficulty with nonweightbearing instructions to the R ankle for it to heal properly. she denied any other musculoskeletal trauma, LOC, CP, SOB, headache, nausea vomiting, fevers, chills, numbness or tingling, calf pain. Review of imaging: R humerus: +3 part displaced proximal humerus fracture healing in good alignment with residual displacement, there is significant callus formation. No evidence of dislocation. Imaging was of the humerus not shoulder. R ankle: + Minimally/non-displaced distal fibula/lateral malleolus fracture. Fractures at the level of the syndesmosis with no medial joint space opening. Stable Trejo B fracture. Past Patient History - Past Medical History & Family History Past Medical History?: Yes Past Family History: Reviewed and not pertinent - Past Social History Smoking Status: Never Smoked - CARDIAC Hx Cardiac Disorders: Yes Hx Hypercholesterolemia: Yes Hx Hypertension: Yes - PULMONARY Hx Respiratory Disorders: No - NEUROLOGICAL Hx Alzheimer's Disease: Yes Hx Dementia: Yes - HEENT Hx HEENT Problems: No - RENAL Hx Chronic Kidney Disease: No - ENDOCRINE/METABOLIC Hx Diabetes Mellitus Type 2: Yes - HEMATOLOGICAL/ONCOLOGICAL Hx Blood Disorders: No - INTEGUMENTARY Hx Dermatological Problems: No - MUSCULOSKELETAL/RHEUMATOLOGICAL Hx Falls: Yes Hx Osteoporosis: Yes - GASTROINTESTINAL Hx Gastrointestinal Disorders: No - GENITOURINARY/GYNECOLOGICAL Hx Genitourinary Disorders: No - PSYCHIATRIC Hx Substance Use: No - SURGICAL HISTORY Hx Appendectomy: Yes Hx Cholecystectomy: Yes (4 years ago) - ANESTHESIA Hx Anesthesia: Yes Hx Anesthesia Reactions: No Hx Malignant Hyperthermia: No Meds Allergies/Adverse Reactions: Allergies Allergy/AdvReac Type Severity Reaction Status Date / Time No Known Allergies Allergy Verified 04/17/17 13:24 - Medications Medications: Current Medications Donepezil HCl (Aricept) 5 mg PO HS [facility] Last Admin: 06/10/17 21:41 Dose: 5 mg Enoxaparin Sodium (Lovenox) 40 mg SC DAILY [facility] Last Admin: 06/11/17 10:59 Dose: 40 mg Gabapentin (Neurontin) 300 mg PO HS [facility] Last Admin: 06/10/17 21:41 Dose: 300 mg Ibuprofen (Motrin Tab) 400 mg PO TID PRN PRN Reason: pain Last Admin: 06/11/17 11:00 Dose: 400 mg Insulin Aspart (Novolog) 0 unit SC [facility] PRN Reason: Protocol Last Admin: 06/11/17 13:10 Dose: 2 unit Insulin Glargine (Lantus) 30 unit SC [facility] Last Admin: 06/10/17 21:43 Dose: 30 units Losartan Potassium (Cozaar) 50 mg PO DAILY [facility] Last Admin: 06/11/17 10:59 Dose: 50 mg Memantine (Namenda) 5 mg PO BID [facility] Last Admin: 06/11/17 10:59 Dose: 5 mg Pantoprazole Sodium (Protonix Ec Tab) 40 mg PO DAILY [facility] Last Admin: 06/11/17 10:59 Dose: 40 mg Sitagliptin Phosphate (Januvia) 50 mg PO DAILY [facility] Last Admin: 06/08/17 08:59 Dose: 50 mg Physical Exam - Extremities Exam Additional comments: right upper extremity: No swelling/warmth/deformity, limited range of motion at shoulder with pain, Not able to tolerate any resisted motion or active testing of shoulder due to pain and stiffness. +5/5 motor strength elbow flexion/extension wrist flexion/extension/supination/ pronation, finger knotting machine operator portable/flexion/extension/abduction Sensory intact C5-T2, UN/AxN/RN/MN/MSCN 2+ radial pulse, brisk cap refill all fingers Left upper extremity: No tenderness to palpation, no swelling no warmth or erythema, no deformity, full range of motion at all joints without pain. +5/5 motor strength shoulder forward flexion/IR/ER/abduction, elbow flexion/ extension, wrist flexion/extension/supination/pronation, finger knotting machine operator portable/flexion/ extension/abduction Sensory intact C5-T2, UN/AxN/RN/MN/MSCN 2+ radial pulse, brisk cap refill all fingers right lower extremity: + Swelling/ecchymosis at lateral ankle and lateral malleolus, skin intact, no warmth, no instability, no tenderness to palpation at medial ankle or syndesmosis. +5/5 motor strength hip flexion/extension, knee flexion/extension, ankle dorsiflexion/plantarflexion, toes up and down Sensory intact L5 to S1, SPN/DPN/TN intact 2+ dorsalis pedis pulse, brisk cap refill all toes Left lower extremity: No swelling/warmth/erythema, no tenderness to palpation, full range of motion at all joints without pain, no instability +5/5 motor strength hip flexion/extension, knee flexion/extension, ankle dorsiflexion/plantarflexion, toes up and down Sensory intact L5 to S1, SPN/DPN/TN intact 2+ dorsalis pedis pulse, brisk cap refill all toes Results - Vital Signs Recent Vital Signs: Last Vital Signs Temp 97.9 F 06/11/17 08:37 Pulse 74 06/11/17 08:37 Resp 20 06/11/17 08:37 BP 167/79 H 06/11/17 08:37 Pulse Ox 100 06/11/17 08:37 - Labs Result Diagrams: 06/11/17 07:36 06/11/17 07:36 Labs: Laboratory Results - last 24 hr 06/10/17 06/10/17 06/11/17 16:28 20:50 06:19 WBC RBC Hgb Hct MCV MCH MCHC RDW Plt Count MPV Neut % (Auto) Lymph % (Auto) Conway % (Auto) Eos % (Auto) Baso % (Auto) Neut # Lymph # Conway # Eos # Baso # Sodium Potassium Chloride Carbon Dioxide Anion Gap BUN Creatinine Est GFR ( Amer) Est GFR (Non-Af Amer) POC Glucose (mg/dL) 294 H 233 H 157 H Random Glucose Calcium 06/11/17 06/11/17 06/11/17 07:36 07:36 11:34 WBC 7.3 RBC 4.36 Hgb 11.5 Hct 33.7 L MCV 77.3 L MCH 26.3 L MCHC 34.1 RDW 14.6 H Plt Count 313 MPV 7.6 Neut % (Auto) 65.3 Lymph % (Auto) 24.1 Conway % (Auto) 6.7 Eos % (Auto) 3.7 Baso % (Auto) 0.2 Neut # 4.8 Lymph # 1.8 Conway # 0.5 Eos # 0.3 Baso # 0.0 Sodium 141 Potassium 3.9 Chloride 105 Carbon Dioxide 32 H Anion Gap 8 L BUN 15 Creatinine 0.7 Est GFR ( Amer) > 60 Est GFR (Non-Af Amer) > 60 POC Glucose (mg/dL) 228 H Random Glucose 130 H Calcium 8.7 Assessment & Plan (1) Fracture of ankle, lateral malleolus, right, closed Assessment and Plan: 81-year-old female with history of multiple falls, presented to ER at [facility] on 06/06/17 with R ankle pain and deformity with inability to weight- bear and swelling for 1 day History of fall 6 weeks ago with R shoulder pain. Diagnosis = #1 acute R ankle minimally displaced lateral malleolus fracture, stable Trejo B fracture #2 healing R shoulder three-part displaced proximal humerus fracture s/p R ankle closed reduction and placement in well-padded short leg cast as an inpatient at [facility] Plan: R ankle: -Initially placed in posterior and U well-padded splint by orthopedic PA on admission -Today swelling was significantly improved and amenable to casting. -with the use of a Australian-speaking record producer we spent a long time discussing treatment options, she understands that a Trejo B fracture can potentially be surgical if a stress examination proves that there is medial instability or syndesmotic instability, she is adamant that surgery is not an option for her and she would like to avoid surgery at all costs and does not want to undergo a stress examination due to the pain and that it won't change her treatment since she would not agree to surgery regardless. Therefore we elected to proceed with just conservative treatment which is ideal for her, we discussed serial casting as the best nonoperative treatment. -After long discussion with the patient with the use of a Australian-speaking record producer, underwent closed reduction and placement in well-padded short leg cast with good fracture molding, she tolerated the procedure well today. Neurovascularly intact after placement of the cast. -Strict nonweightbearing R lower extremity -Cast care discussed at length with the patient -After discussing the case with case management and the primary care physician, it appears that she most likely will be placed in a subacute rehabilitation -Outpatient follow-up after discharge will be with Dr. Clarence Matute, a foot and ankle spec that is in network with her insurance. -I have already discussed the case with Dr. Matute, and he has accepted taking over her care as an outpatient, once placed in the rehabilitation facility, an appointment should be made with Dr. Matute within the next 2 weeks, [phone] -pain control -DVT prophylaxis R shoulder: -At this point the injury is 6 weeks old, humerus x-rays show that there is significant callus formation with overall acceptable alignment -Request that focused R shoulder x-rays be done during this admission -Continue with nonoperative treatment -She is presenting with the R shoulder injury 6 weeks after the injury with callus formation already developing, at this point the best option is to proceed with conservative treatment and attempt to regain function of the R shoulder, at this point ORIF or other surgery is not ideal. -She should be started on aggressive physical therapy focusing on reestablishing range of motion/pain management/strengthening/stretching -This should be continued at the rehabilitation facility upon DC as well -DC sling use -Nonweightbearing for 2 more weeks slowly advance. -I am not in network with her primary insurance, with the use of a Australian- speaking record producer I have advised her that she should contact her insurance and find an orthopedic surgeon to follow-up as an outpatient, the rehab facility can assist her with this. -If she is not satisfied with the outcome of her conservative treatment after a few months, she can decide with the orthopedic surgeon that she is seeing whether or not she is a good candidate for a shoulder replacement. -please contact me with any questions, concerns, updates at [phone] Thank you for allowing me to contribute to the care of your patient. Kavin Capps MD Orthopedic Surgeon Status: Acute (2) Frequent falls Status: Acute (3) Fracture of neck of right humerus Status: Acute
--- NOTE | 2017-06-11 14:57 | RAD ---
PROCEDURE: Right Ankle Radiographs. HISTORY: s/p closed reduction and casting 05/10 COMPARISON: Comparison is made to the previous study dated 06/06/2017 FINDINGS: BONES: The right ankle is in the cast which limits the evaluation for fine details. Again seen is anterior tibial plafond fracture extending to the anterior aspect of the tibiotalar joint. No significant interval change in the osseous structure lymphoma since the previous exam. JOINTS: Normal. No osteoarthritis. Ankle mortise maintained. Talar dome intact SOFT TISSUES: Normal. OTHER FINDINGS: None. IMPRESSION: Re- demonstrated is anterior tibial plafond fracture.
--- NOTE | 2017-06-11 16:11 | RAD ---
PROCEDURE: Radiographs of both shoulders HISTORY: history of multiple falls and proximal humerus fra COMPARISON: Comparison is made to the previous x-ray of the right humerus dated 06/06/2017 FINDINGS: BONES: Right shoulder: Again seen is displaced impacted fracture at right humerus neck. There is callus formation seen around the fracture site. Left shoulder: No evidence of acute fracture JOINTS: Right shoulder: Mild osteoarthritic changes. Left shoulder: Mild osteoarthritic changes. SOFT TISSUES: Right shoulder: Grossly unremarkable. Right shoulder: Grossly unremarkable. OTHER FINDINGS: None. IMPRESSION: Re- demonstrated is subacute fracture at the right humeral neck. No evidence of acute fracture at the left shoulder.
--- NOTE | 2017-06-11 16:49 | CP.PCM.PN ---
Subjective - Date & Time of Evaluation Date of Evaluation: 06/11/17 Time of Evaluation: 11:00 - Subjective Subjective: clinically same Objective - Vital Signs/Intake and Output Vital Signs (last 24 hours): Temp Pulse Resp BP Pulse Ox 97.9 F 77 20 167/79 H 100 06/11/17 08:37 06/11/17 12:15 06/11/17 08:37 06/11/17 08:37 06/11/17 08:37 Intake and Output: 06/11/17 06/11/17 06:59 18:59 Intake Total 480 Balance 480 - Medications Medications: Current Medications Donepezil HCl (Aricept) 5 mg PO HS [facility] Last Admin: 06/10/17 21:41 Dose: 5 mg Enoxaparin Sodium (Lovenox) 40 mg SC DAILY [facility] Last Admin: 06/11/17 10:59 Dose: 40 mg Gabapentin (Neurontin) 300 mg PO HS [facility] Last Admin: 06/10/17 21:41 Dose: 300 mg Ibuprofen (Motrin Tab) 400 mg PO TID PRN PRN Reason: pain Last Admin: 06/11/17 11:00 Dose: 400 mg Insulin Aspart (Novolog) 0 unit SC [facility] PRN Reason: Protocol Last Admin: 06/11/17 13:10 Dose: 2 unit Insulin Glargine (Lantus) [address] [facility] Last Admin: 06/10/17 21:43 Dose: 30 units Losartan Potassium (Cozaar) 50 mg PO DAILY [facility] Last Admin: 06/11/17 10:59 Dose: 50 mg Memantine (Namenda) 5 mg PO BID [facility] Last Admin: 06/11/17 10:59 Dose: 5 mg Pantoprazole Sodium (Protonix Ec Tab) 40 mg PO DAILY [facility] Last Admin: 06/11/17 10:59 Dose: 40 mg Sitagliptin Phosphate (Januvia) 50 mg PO DAILY [facility] Last Admin: 06/08/17 08:59 Dose: 50 mg - Labs Labs: 06/11/17 07:36 06/11/17 07:36 - Constitutional Appears: Well - Head Exam Head Exam: ATRAUMATIC, NORMAL INSPECTION, NORMOCEPHALIC - Eye Exam Eye Exam: EOMI, Normal appearance, PERRL Pupil Exam: NORMAL ACCOMODATION, PERRL - ENT Exam ENT Exam: Mucous Membranes Moist, Normal Exam - Neck Exam Neck Exam: Full ROM, Normal Inspection. absent: Lymphadenopathy - Respiratory Exam Respiratory Exam: Decreased Breath Sounds - Cardiovascular Exam Cardiovascular Exam: REGULAR RHYTHM, +S1, +S2 - GI/Abdominal Exam GI & Abdominal Exam: Soft, Diminished Bowel Sounds - Rectal Exam Rectal Exam: Deferred
[2017-06-11] MEDS: (Lantus) Insulin Glargine, Recombinant SC SCH (22:01)
[2017-06-12] MEDS: (Novolog) Insulin Aspart, Recombinant 100 u/ml 10 ml vial SC SCH ×4 (08:30→21:13)
[2017-06-12] MEDS: Enoxaparin 40 mg Syringe SC SCH (10:14)
[2017-06-12] MEDS: Pantoprazole 40 mg EC Tab PO SCH (10:14)
--- NOTE | 2017-06-12 19:01 | CP.PCM.PN ---
Subjective - Date & Time of Evaluation Date of Evaluation: 06/12/17 Time of Evaluation: 09:40 - Subjective Subjective: clinically same Objective - Vital Signs/Intake and Output Vital Signs (last 24 hours): Temp Pulse Resp BP Pulse Ox 98.2 F 67 20 161/78 H 96 06/12/17 15:41 06/12/17 15:41 06/12/17 15:41 06/12/17 15:41 06/12/17 15:41 Intake and Output: 06/12/17 06/13/17 18:59 06:59 Intake Total 360 Output Total 1 Balance 359 - Medications Medications: Current Medications Donepezil HCl (Aricept) 5 mg PO HS [facility] Last Admin: 06/11/17 21:47 Dose: 5 mg Enoxaparin Sodium (Lovenox) 40 mg SC DAILY [facility] Last Admin: 06/12/17 10:14 Dose: 40 mg Gabapentin (Neurontin) 300 mg PO HS [facility] Last Admin: 06/11/17 21:47 Dose: 300 mg Ibuprofen (Motrin Tab) 400 mg PO TID PRN PRN Reason: pain Last Admin: 06/11/17 11:00 Dose: 400 mg Insulin Aspart (Novolog) 0 unit SC [facility] PRN Reason: Protocol Last Admin: 06/12/17 17:21 Dose: 2 unit Insulin Glargine (Lantus) 30 unit SC [facility] Last Admin: 06/11/17 22:01 Dose: 30 units Losartan Potassium (Cozaar) 50 mg PO DAILY [facility] Last Admin: 06/12/17 10:15 Dose: 50 mg Memantine (Namenda) 5 mg PO BID [facility] Last Admin: 06/12/17 17:16 Dose: 5 mg Pantoprazole Sodium (Protonix Ec Tab) 40 mg PO DAILY [facility] Last Admin: 06/12/17 10:14 Dose: 40 mg Sitagliptin Phosphate (Januvia) 50 mg PO DAILY [facility] Last Admin: 06/08/17 08:59 Dose: 50 mg - Labs Labs: 06/11/17 07:36 06/11/17 07:36 - Constitutional Appears: Well - Head Exam Head Exam: ATRAUMATIC, NORMAL INSPECTION, NORMOCEPHALIC - Eye Exam Eye Exam: EOMI, Normal appearance, PERRL Pupil Exam: NORMAL ACCOMODATION, PERRL - ENT Exam ENT Exam: Mucous Membranes Moist, Normal Exam - Neck Exam Neck Exam: Full ROM, Normal Inspection. absent: Lymphadenopathy - Respiratory Exam Respiratory Exam: Decreased Breath Sounds - Cardiovascular Exam Cardiovascular Exam: REGULAR RHYTHM, +S1, +S2 - GI/Abdominal Exam GI & Abdominal Exam: Soft, Diminished Bowel Sounds - Rectal Exam Rectal Exam: Deferred
[2017-06-12] MEDS: (Lantus) Insulin Glargine, Recombinant SC SCH (21:16)
[2017-06-13] MEDS: (Novolog) Insulin Aspart, Recombinant 100 u/ml 10 ml vial SC SCH ×4 (08:30→21:53)
[2017-06-13] MEDS: Pantoprazole 40 mg EC Tab PO SCH (10:19)
[2017-06-13] MEDS: Enoxaparin 40 mg Syringe SC SCH (10:19)
--- NOTE | 2017-06-13 18:33 | CP.PCM.PN ---
Subjective - Date & Time of Evaluation Date of Evaluation: 06/13/17 Time of Evaluation: 10:20 - Subjective Subjective: clinically same Objective - Vital Signs/Intake and Output Vital Signs (last 24 hours): Temp Pulse Resp BP Pulse Ox 98.1 F 69 18 167/75 H 98 06/13/17 15:07 06/13/17 16:00 06/13/17 15:07 06/13/17 15:07 06/13/17 15:07 Intake and Output: 06/13/17 06/13/17 06:59 18:59 Intake Total 300 Balance 300 - Medications Medications: Current Medications Donepezil HCl (Aricept) 5 mg PO HS [facility] Last Admin: 06/12/17 21:16 Dose: 5 mg Enoxaparin Sodium (Lovenox) 40 mg SC DAILY [facility] Last Admin: 06/13/17 10:19 Dose: 40 mg Gabapentin (Neurontin) 300 mg PO HS [facility] Last Admin: 06/12/17 21:20 Dose: 300 mg Ibuprofen (Motrin Tab) 400 mg PO TID PRN PRN Reason: pain Last Admin: 06/11/17 11:00 Dose: 400 mg Insulin Aspart (Novolog) 0 unit SC [facility] PRN Reason: Protocol Last Admin: 06/13/17 17:34 Dose: 2 unit Insulin Glargine (Lantus) [address] [facility] Last Admin: 06/12/17 21:16 Dose: 30 units Losartan Potassium (Cozaar) 50 mg PO DAILY [facility] Last Admin: 06/13/17 10:19 Dose: 50 mg Memantine (Namenda) 5 mg PO BID [facility] Last Admin: 06/13/17 17:35 Dose: 5 mg Pantoprazole Sodium (Protonix Ec Tab) 40 mg PO DAILY [facility] Last Admin: 06/13/17 10:19 Dose: 40 mg Sitagliptin Phosphate (Januvia) 50 mg PO DAILY [facility] Last Admin: 06/08/17 08:59 Dose: 50 mg - Labs Labs: 06/11/17 07:36 06/11/17 07:36 - Constitutional Appears: Well - Head Exam Head Exam: ATRAUMATIC, NORMAL INSPECTION, NORMOCEPHALIC - Eye Exam Eye Exam: EOMI, Normal appearance, PERRL Pupil Exam: NORMAL ACCOMODATION, PERRL - ENT Exam ENT Exam: Mucous Membranes Moist, Normal Exam - Neck Exam Neck Exam: Full ROM, Normal Inspection. absent: Lymphadenopathy - Respiratory Exam Respiratory Exam: Decreased Breath Sounds - Cardiovascular Exam Cardiovascular Exam: REGULAR RHYTHM, +S1, +S2 - GI/Abdominal Exam GI & Abdominal Exam: Soft, Diminished Bowel Sounds - Rectal Exam Rectal Exam: Deferred
[2017-06-13] MEDS: (Lantus) Insulin Glargine, Recombinant SC SCH (22:03)
--- NOTE | 2017-06-13 23:47 | CP.PCM.PN ---
Subjective - Date & Time of Evaluation Date of Evaluation: 06/13/17 Time of Evaluation: 14:10 Objective - Vital Signs/Intake and Output Vital Signs (last 24 hours): Temp Pulse Resp BP Pulse Ox 98.1 F 69 18 167/75 H 98 06/13/17 15:07 06/13/17 16:00 06/13/17 15:07 06/13/17 15:07 06/13/17 15:07 Intake and Output: 06/13/17 06/14/17 18:59 06:59 Intake Total 300 480 Balance 300 480 - Medications Medications: Current Medications Donepezil HCl (Aricept) 5 mg PO HS [facility] Last Admin: 06/13/17 22:02 Dose: 5 mg Enoxaparin Sodium (Lovenox) 40 mg SC DAILY [facility] Last Admin: 06/13/17 10:19 Dose: 40 mg Gabapentin (Neurontin) 300 mg PO HS [facility] Last Admin: 06/13/17 22:02 Dose: 300 mg Ibuprofen (Motrin Tab) 400 mg PO TID PRN PRN Reason: pain Last Admin: 06/11/17 11:00 Dose: 400 mg Insulin Aspart (Novolog) 0 unit SC [facility] PRN Reason: Protocol Last Admin: 06/13/17 21:53 Dose: Not Given Insulin Glargine (Lantus) 30 unit SC HS [facility] Last Admin: 06/13/17 22:03 Dose: 30 units Losartan Potassium (Cozaar) 50 mg PO DAILY [facility] Last Admin: 06/13/17 10:19 Dose: 50 mg Memantine (Namenda) 5 mg PO BID [facility] Last Admin: 06/13/17 17:35 Dose: 5 mg Pantoprazole Sodium (Protonix Ec Tab) 40 mg PO DAILY [facility] Last Admin: 06/13/17 10:19 Dose: 40 mg Sitagliptin Phosphate (Januvia) 50 mg PO DAILY [facility] Last Admin: 06/08/17 08:59 Dose: 50 mg - Labs Labs: 06/11/17 07:36 06/11/17 07:36
[2017-06-14] MEDS: (Novolog) Insulin Aspart, Recombinant 100 u/ml 10 ml vial SC SCH ×3 (08:13→16:48)
[2017-06-14] MEDS: Enoxaparin 40 mg Syringe SC SCH (09:09)
[2017-06-14] MEDS: Pantoprazole 40 mg EC Tab PO SCH (09:10)
--- NOTE | 2017-06-14 12:19 | CP.PCM.PN ---
Subjective - Date & Time of Evaluation Date of Evaluation: 06/14/17 Time of Evaluation: 12:19 - Subjective Subjective: PT SEEN AND CLEARED FOR D/C TODAY PER DR. Chata DALLAS. NAD. PT OFFERS NO COMPLAINTS OF PAIN OR DISTRESS; NO PARESTHESIAS PER PT TO [facility]. VERBALIZES THAT SHE IS EAGER TO GO TO REHAB. VSS, AAOX3; CAST NOTED TO RIGHT LOWER EXTR; NO NEUROLOGICAL OR VASCULAR ISSUES NOTED. REG RHYTHM AND BS CTA B/L. WILL D/C PT TO [facility] TODAY UNDER THE SERVICE OF DR. Chata DALLAS. BELOW I HAVE NOTED ALL D/C INFORMATION, INCLUDING DETAILED PHY THER AND F/U RECOMMENDATIONS FROM Jael HEMPHILL'S LAST PROGRESS NOTE. I HAVE DISCUSSED D/C PLAN WITH NESTOR HUNTER AND NO FURTHER ORTHO RECS. SW TO PROVIDE TRANSPORTATION TO [facility]. PT MADE AWARE OF PLAN FOR D/C TODAY AND IN AGREEMENT. NO FURTHER ORDERS. PER DAUGHTER'S REQUEST THIS INFORMATION WAS LEFT WITH THE D/C ORDER: PLEASE CALL AND NOTIFY DAUGHTERSERGIO, WHEN PT IS BEING PICKED UP FOR DISCHARGE TO [facility]---HER NUMBER IS [phone] (SHE IS CAMEROONIAN SPEAKING); AWARE OF D/C AND SHE WILL MEET THE PT AT [facility]. [facility] TO ALSO NOTIFY HER ONCE SHE ARRIVES. -PLACE UNDER THE SERVICE OF DR. Chata DALLAS WHILE AT [facility]---CALL UPON ARRIVAL TO FACILITY WITH BED ASSIGNMENT AND FOR ADMITTING ORDERS. -CONTINUE MEDICATIONS PER THE MED REC FORM. CONTINUE DVT PROPHYLAXIS PER ORTHO RECOMMENDATIONS---CHANGES CAN BE MADE BY DR. Chata DALLAS. -PHYSICAL THERAPY TOLERATED. -PER DR. HEMPHILL (ORTHOPEDIC SURGEON): RECOMMENDATIONS FOR RIGHT ANKLE---> STRICT NON-WEIGHT BEARING TO RIGHT LOWER EXTREMITY; CAST CARE; CONTINUE DVT PROPHYLAXIS; MUST HAVE FOLLOW UP APPOINTED ARRANGED WITH DR. TC NIEVES (FOOT AND ANKLE SPECIALIST; DR. HEMPHILL HAS ALREADY SPOKE TO DR. NIEVES ABOUT PT; PLEASE ARRANGE OFFICE VISIT WITH DR. NIEVES WITHIN 10-14 DAYS---OFFICE NUMBER [phone]). RECOMMENDATIONS FOR RIGHT SHOULDER---> CONTINUE NONOPERATIVE TREATMENT; AGGRESSIVE PHYSICAL THERAPY FOCUSING ON RANGE OF MOTION, PAIN MANAGEMENT, STRENGTHENING, AND STRETCHING; NON- WEIGHT BEARING FOR ABOUT 2 MORE WEEKS AND ADVANCE WEIGHT BEARING SLOWLY; IF CONSERVATIVE TREATMENT OVER THE NEXT SEVERAL MONTHS SHE MAY BE RE-EVALUATED BY ANOTHER ORTHOPEDIC SURGEON. -FALL PRECAUTIONS PER FACILITY PROTOCOL. -FOR FURTHER ORDERS, CONTACT DR. Crystal DALLAS'S OFFICE. Objective - Vital Signs/Intake and Output Vital Signs (last 24 hours): Temp Pulse Resp BP Pulse Ox 97.8 F 73 20 143/72 98 06/14/17 07:00 06/14/17 07:00 06/14/17 07:00 06/14/17 09:10 06/14/17 07:00 Intake and Output: 06/14/17 06/14/17 06:59 18:59 Intake Total 480 Output Total 200 Balance 280 - Medications Medications: Current Medications Donepezil HCl (Aricept) 5 mg PO HS [facility] Last Admin: 06/13/17 22:02 Dose: 5 mg Gabapentin (Neurontin) 300 mg PO HS [facility] Last Admin: 06/13/17 22:02 Dose: 300 mg Ibuprofen (Motrin Tab) 400 mg PO TID PRN PRN Reason: pain Last Admin: 06/11/17 11:00 Dose: 400 mg Insulin Aspart (Novolog) [address] [facility] PRN Reason: Protocol Last Admin: 06/14/17 11:26 Dose: Not Given Insulin Glargine (Lantus) 30 unit SC HS [facility] Last Admin: 06/13/17 22:03 Dose: 30 units Losartan Potassium (Cozaar) 50 mg PO DAILY [facility] Last Admin: 06/14/17 09:10 Dose: 50 mg Memantine (Namenda) 5 mg PO BID [facility] Last Admin: 06/14/17 09:10 Dose: 5 mg Pantoprazole Sodium (Protonix Ec Tab) 40 mg PO DAILY [facility] Last Admin: 06/14/17 09:10 Dose: 40 mg Sitagliptin Phosphate (Januvia) 50 mg PO DAILY [facility] Last Admin: 06/08/17 08:59 Dose: 50 mg - Labs Labs: 06/11/17 07:36 06/11/17 07:36
[2017-06-14 17:28] VITALS: BP 154/75; PULSE 75; RESP 18; TEMP 98.4; O2SAT 96
== END 2017-06-14 18:30 | DRG 563 ==
LOC: C.ER 10:29 → C.9E 15:33 → C.6T 22:39 → OBSVTOIN 06-08 08:25 → C.6T 06-12 08:56
PROVIDERS: ADMIT Internal Medicine Nephrology; ATTEND Internal Medicine Nephrology
DX: S82.451A Displaced comminuted fracture of shaft of right fibula, initial encounter for closed fracture (principal); E11.9 Type 2 diabetes mellitus without complications; G30.9 Alzheimer's disease, unspecified; F02.80 Dementia in other diseases classified elsewhere, unspecified severity, without behavioral disturbance, psychotic disturbance, mood disturbance, and anxiety; S42.251A Displaced fracture of greater tuberosity of right humerus, initial encounter for closed fracture; S82.61XA Displaced fracture of lateral malleolus of right fibula, initial encounter for closed fracture; W07.XXXA Fall from chair, initial encounter; E78.00 Pure hypercholesterolemia, unspecified; I10 Essential (primary) hypertension; M20.10 Hallux valgus (acquired), unspecified foot; M21.00 Valgus deformity, not elsewhere classified, unspecified site; M81.0 Age-related osteoporosis without current pathological fracture; M77.31 Calcaneal spur, right foot; R29.6 Repeated falls; Z91.19 Patient's noncompliance with other medical treatment and regimen; Y92.019 Unspecified place in single-family (private) house as the place of occurrence of the external cause; Z91.81 History of falling; M25.473 Effusion, unspecified ankle; M25.511 Pain in right shoulder